=== PATIENT | male | born 1960 | race American Indian/Alaskan Native ===

== ENCOUNTER 2019-02-10 11:46 | Day surgery (SDC) | payer MEDICARE | END 2019-02-10 11:47 | disposition home or self-care (01) | LOC: GIO 11:46 | PROVIDERS: ATTEND Internal Medicine Gastroenterology | DX: K92.1 Melena (principal); Z53.8 Procedure and treatment not carried out for other reasons; Z79.899 Other long term (current) drug therapy ==